=== PATIENT | male | born 2005 | race Two or more races ===

== ENCOUNTER 2023-11-01 13:20 | Inpatient (IN) | payer MEDICAID, OTHER ==
[~2023-11-01] VITALS: Ht 177.8 cm; Wt 70.2 kg
[2023-11-01 14:22] LABS: Urine Bacteria None Seen /hpf (None Seen)
[2023-11-01 14:32] LABS: Urine Blood Negative /uL (Negative); Urine Clarity Clear (Clear); Urine Color Light-Yellow (Yellow); Urine Protein, UAD TRACE (Negative); Urine Specific Gravity 1.036 (1.001-1.035); Urine Urobilinogen Normal (Negative); Urine WBC 3 /hpf (0 - 3); Urine pH 5.5 (5.0-9.0)
[2023-11-01 15:34] LABS: Basophils # (auto) 0 10 ^3/uL (0-0.2); Basophils % (auto) 0.4 % (0.0-2.0); Eosinophils # (auto) 0 10 ^3/uL (0-0.8); Eosinophils % (auto) 0.6 % (0.0-7.0); Hemoglobin 14.9 g/dL (13.5-17.5); Lymphocytes # (auto) 1.5 10 ^3/uL (0.4-5.4); Lymphocytes % (auto) 19.5 % (10.0-50.0); Mean Corpuscular Hemoglobin 29.4 pg (28.0-32.0); Mean Corpuscular Hgb Conc. 33.8 g/dL (32.0-36.0); Mean Corpuscular Volume 86.8 fL (80.0-100.0); Monocytes # (auto) 0.7 10 ^3/uL (0-1.3); Monocytes % (auto) 9.5 % (0.0-12.0); Neutrophils # (auto) 5.5 10 ^3/uL (1.6-8.6); Nucleated Red Blood Cells % 0.1 %; Platelet Count (auto) 310 10^3/uL (140-450); Red Blood Cells 5.07 10^6/uL (4.5-5.90); White Blood Cell 7.8 10^3/uL (4.4-10.8)
[2023-11-01 15:49] LABS: Alanine Aminotransferase 16 U/L (7-40); Albumin 4.2 g/dL (3.2-4.8); Alkaline Phosphatase 215 U/L (46-116); Anion Gap 20 (5-15); Aspartate Aminotransferase 12 U/L (13-40); BUN/Creatinine Ratio 6.1 (10.0-20.0); Bilirubin, Total 0.4 mg/dL (0.2-1.0); Blood Urea Nitrogen 9 mg/dL (9-23); Calcium 9.1 mg/dL (8.7-10.4); Carbon Dioxide 10 mmol/L (20-30); Chloride 99 mmol/L (98-107); Lipase 32 U/L (12-53); Potassium 3.8 mmol/L (3.5-5.1); Sodium 129 mmol/L (136-145); Total Protein 7.9 g/dL (5.7-8.2)
[2023-11-01 15:58] LABS: Glucose 568 mg/dL (74-106)
[2023-11-01 16:58] LABS: Amphetamine Screen, Urine Neg (NEGATIVE); Barbiturate Scree,Urine Neg (NEGATIVE); Benzodiazephine Screen, Urine Neg (NEGATIVE); Cannabinoid Screen, Urine Neg (NEGATIVE); Cocaine Screen, Urine Neg (NEGATIVE); Opiate Scree,Urine Neg (NEGATIVE); Phencyclidine Screen, Urine Neg (NEGATIVE)
[2023-11-01] MEDS: SODIUM CHLORIDE 0.9% 1,000 ML IV ONE (17:00)
[2023-11-01] MEDS ORDERED: MORPHINE SULFATE INJ 2 MG/ml SYRG IV PRN (17:30)
[2023-11-01] MEDS ORDERED: ENOXAPARIN SOD 40 MG/0.4 ML SYRINGE SC SCH (17:30)
[2023-11-01] MEDS ORDERED: DEXTROSE (50%) 50ML SYRG IV PRN ×2 (17:30→23:00)
[2023-11-01] MEDS ORDERED: DOCUSATE SOD 100 MG CAP PO PRN (17:30)
[2023-11-01] MEDS: InsuLIN REG 1unit/0.01ml Soln (100units/ml) IV ONE (17:36)
[2023-11-01] MEDS: ACCU-CHEK COMFORT CURVE STRIP VI SCH (18:00)
[2023-11-01] MEDS: INSULIN DRIP 100 UNIT/100ML 100 ML IV SCH (18:00)
[2023-11-01] MEDS: SODIUM CHLORIDE 0.9% 1,000 ML IV SCH ×2 (18:25→19:33)
[2023-11-01 18:37] LABS: Base Excess -14.9 mmol/L (-2.0-2.0)
[2023-11-01] MEDS ORDERED: NITROGLYCERIN 0.4 MG SL TAB SL PRN (18:45)
[2023-11-01 19:14] LABS: Creatinine, Urine 30.85 mg/dL (30.0-125.0)
[2023-11-01 19:15] LABS: INR 1.02 (0.9-1.15); Prothrombin Time 10.8 sec (9.3-11.8)
[2023-11-01 20:27] LABS: Potassium 2.7 mmol/L (3.5-5.1); Sodium 139 mmol/L (136-145)
[2023-11-01 20:28] LABS: Anion Gap 17 (5-15); Carbon Dioxide 11 mmol/L (20-30)
[2023-11-01 20:29] LABS: Calcium 8.4 mg/dL (8.7-10.4)
[2023-11-01 20:34] LABS: BUN/Creatinine Ratio 6.9 (10.0-20.0); Blood Urea Nitrogen 7 mg/dL (9-23)
[2023-11-01 20:36] LABS: Chloride 111 mmol/L (98-107); Glucose 183 mg/dL (74-106)
[2023-11-01 20:57] LABS: Magnesium 2.1 mg/dL (1.6-2.6)
[2023-11-01 20:58] LABS: Phosphorus 3.7 mg/dL (2.4-5.1)
[2023-11-01] MEDS: INSULIN LANTUS (GLARGINE) 1 /0.01ml (100units/ml) SC ONE (21:09)
[2023-11-01] MEDS: PANTOPRAZOLE 40 MG/10 ML VIAL INJ IV ONE (21:20)
[2023-11-01] MEDS: D5W 5% 1,000 ML IV SCH (21:45)
[2023-11-01] MEDS: ENOXAPARIN SOD 60 MG/0.6 ML SYRINGE SC SCH (22:00)
[2023-11-01 22:13] LABS: Anion Gap 14 (5-15); Carbon Dioxide 13 mmol/L (20-30); Chloride 110 mmol/L (98-107); Sodium 137 mmol/L (136-145)
[2023-11-01 22:14] LABS: Calcium 8.4 mg/dL (8.7-10.4)
[2023-11-01 22:18] LABS: Glucose 147 mg/dL (74-106)
[2023-11-01 22:19] LABS: BUN/Creatinine Ratio 6.2 (10.0-20.0); Blood Urea Nitrogen 6 mg/dL (9-23); Magnesium 1.8 mg/dL (1.6-2.6)
[2023-11-01 22:21] LABS: Phosphorus 1.9 mg/dL (2.4-5.1)
[2023-11-01 22:22] LABS: Potassium 2.5 mmol/L (3.5-5.1)
[2023-11-01 22:30] VITALS: PULSE 87; RESP 14; O2SAT 98
[2023-11-01] MEDS: ONDANSETRON HCL 4 MG/2 ML VIAL IV PRN (23:26)
[2023-11-01] MEDS ORDERED: SODIUM CHLORIDE 0.9% 1,000 ML IV SCH (23:30)
[2023-11-01] MEDS: POTASSIUM CHL 20 Meq TABLET PO ONE (23:32)
[2023-11-02] VITALS (9 sets, daily range): BP systolic 107–121; BP diastolic 65–73; PULSE 61–80; RESP 16–20; TEMP 97.4–98.2; O2SAT 97–98
[2023-11-02] MEDS: ACCU-CHEK COMFORT CURVE STRIP VI SCH (00:32)
[2023-11-02] MEDS: InsuLIN REG 1unit/0.01ml Soln (100units/ml) SC SCH (00:32)
[2023-11-02 02:26] LABS: Chloride 107 mmol/L (98-107); Potassium 2.9 mmol/L (3.5-5.1); Sodium 137 mmol/L (136-145)
[2023-11-02 02:27] LABS: Anion Gap 15 (5-15); Calcium 8.7 mg/dL (8.7-10.4); Carbon Dioxide 15 mmol/L (20-30)
[2023-11-02 02:32] LABS: BUN/Creatinine Ratio 6.3 (10.0-20.0); Blood Urea Nitrogen 6 mg/dL (9-23); Glucose 194 mg/dL (74-106)
[2023-11-02 02:33] LABS: Magnesium 1.7 mg/dL (1.6-2.6)
[2023-11-02] MEDS ORDERED: POTASSIUM CHL 20 Meq TABLET PO ONE (06:00)
[2023-11-02] MEDS: POTASSIUM CHL 20 Meq TABLET PO ONE ×3 (06:01→22:16)
[2023-11-02 06:46] LABS: Basophils # (auto) 0 10 ^3/uL (0-0.2); Basophils % (auto) 0.2 % (0.0-2.0); Eosinophils # (auto) 0.1 10 ^3/uL (0-0.8); Eosinophils % (auto) 1.5 % (0.0-7.0); Hematocrit 39.8 % (41.0-53.0); Hemoglobin 13.7 g/dL (13.5-17.5); Lymphocytes # (auto) 1.9 10 ^3/uL (0.4-5.4); Lymphocytes % (auto) 26.3 % (10.0-50.0); Mean Corpuscular Hemoglobin 28.9 pg (28.0-32.0); Mean Corpuscular Hgb Conc. 34.3 g/dL (32.0-36.0); Monocytes # (auto) 0.8 10 ^3/uL (0-1.3); Monocytes % (auto) 10.8 % (0.0-12.0); Neutrophils # (auto) 4.5 10 ^3/uL (1.6-8.6); Neutrophils % (auto) 61.2 % (37.0-80.0); Nucleated Red Blood Cells % 0.1 %; Platelet Count (auto) 264 10^3/uL (140-450); Red Blood Cells 4.74 10^6/uL (4.5-5.90); Red Cell Distribution Width 15.3 % (11.8-14.3); White Blood Cell 7.4 10^3/uL (4.4-10.8)
[2023-11-02 06:59] LABS: Alanine Aminotransferase 15 U/L (7-40); Albumin 3.7 g/dL (3.2-4.8); Alkaline Phosphatase 178 U/L (46-116); Anion Gap 12 (5-15); Aspartate Aminotransferase 12 U/L (13-40); BUN/Creatinine Ratio 6.5 (10.0-20.0); Bilirubin, Total 0.4 mg/dL (0.2-1.0); Blood Urea Nitrogen 6 mg/dL (9-23); Calcium 9.4 mg/dL (8.7-10.4); Carbon Dioxide 19 mmol/L (20-30); Chloride 107 mmol/L (98-107); Glucose 109 mg/dL (74-106); Magnesium 1.8 mg/dL (1.6-2.6); Phosphorus 2.3 mg/dL (2.4-5.1); Potassium 2.6 mmol/L (3.5-5.1); Sodium 138 mmol/L (136-145); Total Protein 6.8 g/dL (5.7-8.2)
[2023-11-02 07:09] LABS: COVID19 ANTIGEN SOFIA FIA NEGATIVE (NEGATIVE); Rapid Influenza A Negative (Negative); Rapid Influenza B Negative (Negative)
[2023-11-02] MEDS ORDERED: INSULIN LANTUS (GLARGINE) 1 /0.01ml (100units/ml) SC SCH (10:00)
[2023-11-02] MEDS: PANTOPRAZOLE 40 MG/10 ML VIAL INJ IV SCH (10:00)
[2023-11-02] MEDS: INSULIN LANTUS (GLARGINE) 1 /0.01ml (100units/ml) SC SCH (17:00)
[2023-11-02] MEDS: MAGNESIUM OXIDE 400 MG TAB PO ONE (22:07)
[2023-11-03] VITALS (8 sets, daily range): BP systolic 97–118; BP diastolic 63–72; PULSE 65–79; RESP 17–18; TEMP 97.5–98.2; O2SAT 96–98
[2023-11-03 07:10] LABS: Basophils # (auto) 0 10 ^3/uL (0-0.2); Basophils % (auto) 0.3 % (0.0-2.0); Eosinophils # (auto) 0.1 10 ^3/uL (0-0.8); Eosinophils % (auto) 2.5 % (0.0-7.0); Hematocrit 40.2 % (41.0-53.0); Hemoglobin 14.1 g/dL (13.5-17.5); Lymphocytes # (auto) 1.9 10 ^3/uL (0.4-5.4); Lymphocytes % (auto) 36.6 % (10.0-50.0); Mean Corpuscular Hemoglobin 29.2 pg (28.0-32.0); Mean Corpuscular Volume 83.5 fL (80.0-100.0); Monocytes # (auto) 0.6 10 ^3/uL (0-1.3); Monocytes % (auto) 12.3 % (0.0-12.0); Neutrophils # (auto) 2.5 10 ^3/uL (1.6-8.6); Neutrophils % (auto) 48.3 % (37.0-80.0); Nucleated Red Blood Cells % 0.2 %; Platelet Count (auto) 224 10^3/uL (140-450); Red Blood Cells 4.82 10^6/uL (4.5-5.90); Red Cell Distribution Width 15.2 % (11.8-14.3); White Blood Cell 5.1 10^3/uL (4.4-10.8)
[2023-11-03 07:47] LABS: Alanine Aminotransferase 13 U/L (7-40); Albumin 3.5 g/dL (3.2-4.8); Alkaline Phosphatase 165 U/L (46-116); Anion Gap 8 (5-15); Aspartate Aminotransferase 11 U/L (13-40); BUN/Creatinine Ratio 7.8 (10.0-20.0); Bilirubin, Total 0.4 mg/dL (0.2-1.0); Blood Urea Nitrogen 7 mg/dL (9-23); Calcium 9.2 mg/dL (8.7-10.4); Carbon Dioxide 23 mmol/L (20-30); Chloride 105 mmol/L (98-107); Glucose 194 mg/dL (74-106); Potassium 2.7 mmol/L (3.5-5.1); Sodium 136 mmol/L (136-145)
[2023-11-03 07:48] LABS: Total Protein 6.4 g/dL (5.7-8.2)
[2023-11-03] MEDS: POTASSIUM CHL 20 Meq TABLET PO ONE ×2 (12:15)
[2023-11-03 15:28] LABS: Chloride 105 mmol/L (98-107); Potassium 3.5 mmol/L (3.5-5.1); Sodium 134 mmol/L (136-145)
[2023-11-03 15:29] LABS: Anion Gap 4 (5-15); Carbon Dioxide 25 mmol/L (20-30)
[2023-11-03 15:30] LABS: Calcium 9.4 mg/dL (8.7-10.4)
[2023-11-03 15:34] LABS: BUN/Creatinine Ratio 6.9 (10.0-20.0); Blood Urea Nitrogen 6 mg/dL (9-23); Glucose 229 mg/dL (74-106)
[2023-11-03] MEDS ORDERED: INSLANTI SC (16:13)
[2023-11-03] MEDS ORDERED: BLOO1KIT60 XX (16:13)
[2023-11-04] VITALS (8 sets, daily range): BP systolic 96–114; BP diastolic 62–82; PULSE 54–96; RESP 16–20; TEMP 97.7–98.7; O2SAT 94–100
[2023-11-04 07:33] LABS: Alanine Aminotransferase 13 U/L (7-40); Albumin 3.5 g/dL (3.2-4.8); Alkaline Phosphatase 159 U/L (46-116); Anion Gap 8 (5-15); Aspartate Aminotransferase 13 U/L (13-40); BUN/Creatinine Ratio 8.1 (10.0-20.0); Bilirubin, Total 0.4 mg/dL (0.2-1.0); Blood Urea Nitrogen 6 mg/dL (9-23); Calcium 9.5 mg/dL (8.7-10.4); Carbon Dioxide 25 mmol/L (20-30); Chloride 105 mmol/L (98-107); Glucose 184 mg/dL (74-106); Potassium 2.9 mmol/L (3.5-5.1); Sodium 138 mmol/L (136-145); Total Protein 6.3 g/dL (5.7-8.2)
[2023-11-04] MEDS ORDERED: AZITTAB PO (10:04)
[2023-11-04] MEDS ORDERED: POTA-228 PO (10:04)
[2023-11-04] MEDS: POTASSIUM CHL 20 Meq TABLET PO ONE ×2 (10:36→11:45)
[2023-11-04 21:31] LABS: Chloride 103 mmol/L (98-107); Potassium 3.9 mmol/L (3.5-5.1); Sodium 135 mmol/L (136-145)
[2023-11-04 21:32] LABS: Anion Gap 4 (5-15); Calcium 9.8 mg/dL (8.7-10.4); Carbon Dioxide 28 mmol/L (20-30)
[2023-11-04 21:37] LABS: BUN/Creatinine Ratio 6.5 (10.0-20.0); Blood Urea Nitrogen 6 mg/dL (9-23)
[2023-11-04 21:39] LABS: Glucose 309 mg/dL (74-106)
== END 2023-11-04 22:29 | disposition home or self-care (01) | DRG 420 ==
LOC: ER 13:20 → TELE 18:38 → TELE-CENTR 11-02 03:36
PROVIDERS: ADMIT Internal Medicine Geriatric Medicine; ATTEND Internal Medicine Geriatric Medicine
DX: E10.10 Type 1 diabetes mellitus with ketoacidosis without coma (principal); N17.0 Acute kidney failure with tubular necrosis; E87.1 Hypo-osmolality and hyponatremia; Z20.822 Contact with and (suspected) exposure to COVID-19; E86.0 Dehydration; K59.00 Constipation, unspecified; E87.6 Hypokalemia; K21.9 Gastro-esophageal reflux disease without esophagitis; J40 Bronchitis, not specified as acute or chronic; Z83.3 Family history of diabetes mellitus; Z88.0 Allergy status to penicillin
CPT/HCPCS: 36415; 36600; 71045; 74176; 80048; 80053; 80307; 81001; 82010; 82570; 82805; 82962; 83036; 83690; 83735; 83930; 84100; 84300; 85025; 85379; 85610; 87426; 87804; G0378; J1815; J2405; J2470